=== PATIENT | male | born 1960 | race African-American/Black ===

== ENCOUNTER 2021-12-08 11:18 | Emergency (ER) | payer OTHER ==
[~2021-12-08] VITALS: Ht 177.8 cm; Wt 79.5 kg
[2021-12-08 11:39] VITALS: BP 131/99; PULSE 90; TEMP 96.7
[2021-12-08] MEDS ORDERED: ILOTYCIN5 MG/GM OP ×3 (14:20→16:17)
== END 2021-12-08 14:36 | disposition home or self-care (01) ==
LOC: COL.ER 11:18
DX: S05.02XA Injury of conjunctiva and corneal abrasion without foreign body, left eye, initial encounter (principal); H20.9 Unspecified iridocyclitis; F17.200 Nicotine dependence, unspecified, uncomplicated; Z88.1 Allergy status to other antibiotic agents; Z98.41 Cataract extraction status, right eye; X58.XXXA Exposure to other specified factors, initial encounter